=== PATIENT | male | born 1995 | race Caucasian/White ===

== ENCOUNTER 2019-03-26 19:44 | Inpatient (IN) | payer MEDICAID ==
[~2019-03-26] VITALS: Ht 182.9 cm; Wt 75.3 kg
[2019-03-26] MEDS ORDERED: RISP3 PO (21:54)
[2019-03-26] MEDS ORDERED: CETI10TA59 PO (21:54)
[2019-03-26] MEDS ORDERED: FLUT16H NASAL (21:54)
[2019-03-26] MEDS ORDERED: GABA-531 PO (21:54)
[2019-03-26] MEDS ORDERED: MINO50CA36 PO (21:54)
[2019-03-26] MEDS ORDERED: GUAN1TAB22 PO (21:54)
[2019-03-26 22:09] LABS: BASOPHILS % (AUTO) 0.4 % (0.0-2.0); EOSINOPHILS % (AUTO) 0.6 % (1.0-6.0); HEMATOCRIT 40.2 % (41-53); HEMOGLOBIN 13.8 g/dL (13.5-17.5); LYMPHOCYTES # (AUTO) 2.2 K/uL (1.0-4.8); LYMPHOCYTES % (AUTO) 24.8 % (22.0-44.0); MEAN CORPUSCULAR HEMOGLOBIN 29.8 pg (26.0-34.0); MEAN CORPUSCULAR HGB CONC 34.4 G/dL (31.0-37.0); MEAN CORPUSCULAR VOLUME 87 fL (80-100); MONOCYTES # (AUTO) 0.5 K/uL (0.1-1.0); NEUTROPHILS # (AUTO) 6.2 K/uL (1.8-7.7); NEUTROPHILS % (AUTO) 68.2 % (40.0-70.0); PLATELET COUNT (AUTO) 197 K/uL (150-450); RED BLOOD CELL COUNT(AUTO) 4.64 MIL/uL (4.50-5.90); RED CELL DISTRIBUTION WIDTH 13.3 % (11.5-14.5)
[2019-03-26 22:19] LABS: ANION GAP 16 mmol/L (8-16); CALCIUM, TOTAL 9.5 mg/dL (8.8-10.5); CARBON DIOXIDE 26 mmol/L (22-29); CHLORIDE 102 mmol/L (98-107); CREATININE 0.93 mg/dL (0.60-1.30); GLOMERULAR FILTR. RATE CALC > 60 mL/min (>60); GLUCOSE,RANDOM 98 mg/dL (70-110); POTASSIUM 4.3 mmol/L (3.5-5.1); SODIUM SERUM 144 mmol/L (136-145); UREA NITROGEN, BLOOD 18 mg/dL (7-18)
[2019-03-26 22:22] LABS: AMPHET/METH SCREEN,URINE NEGATIVE (NEGATIVE); BARBITURATE SCREEN, URINE NEGATIVE (NEGATIVE); BENZODIAZEPINES SCREEN,URINE NEGATIVE (NEGATIVE); CANNABINOID SCREEN,URINE NEGATIVE (NEGATIVE); COCAINE SCREEN,URINE NEGATIVE (NEGATIVE); METHADONE SCREEN, URINE NEGATIVE (NEGATIVE); OPIATE SCREEN,URINE NEGATIVE (NEGATIVE)
[2019-03-26 22:24] LABS: PHENCYCLIDINE SCREEN,URINE NEGATIVE (NEGATIVE)
[2019-03-26 22:25] LABS: ALANINE AMINOTRANSFERASE 20 U/L (12-78); ALBUMIN 4.3 g/dL (3.4-5.0); ALKALINE PHOSPHATASE 103 U/L (46-116); ASPARTATE AMINOTRANSFERASE 22 U/L (15-37); BILIRUBIN,TOTAL 0.4 mg/dL (0.1-1.0); TOTAL PROTEIN, SERUM 7.2 g/dL (6.4-8.2)
[2019-03-26] MEDS ORDERED: LORazepam 2 MG TABLET PO PRN (23:30)
[2019-03-26] MEDS ORDERED: ZOLPIDEM TARTRATE 10 MG TABLET PO PRN (23:30)
[2019-03-26] MEDS ORDERED: HALOPERIDOL 5 MG TABLET PO PRN (23:30)
[2019-03-27 04:01] VITALS: BP 128/78
[2019-03-27] MEDS ORDERED: DOCUSATE SODIUM 100 MG CAPSULE PO PRN (08:15)
[2019-03-27] MEDS ORDERED: PETROLATUM,WHITE 28 GM JELLY TP PRN (08:15)
[2019-03-27] MEDS ORDERED: MAGNESIUM HYDROXIDE SUSPENSION 30 ML UDCUP PO PRN (08:15)
[2019-03-27] MEDS ORDERED: CloNIDine HCL 0.1 MG TABLET PO PRN (08:15)
[2019-03-27] MEDS ORDERED: ALBUTEROL SULFATE HFA 90 MCG/PUFF 8 GM INHALER IH PRN (08:15)
[2019-03-27] MEDS ORDERED: GuaiFENesin/D-METHORPHAN [SUGAR-FREE] 200-20MG/10 ML SYRUP UDCUP PO PRN (08:15)
[2019-03-27] MEDS ORDERED: MAG HYDROX/AL HYDROX/SIMETH ES 30 ML SUSPENSION UDCUP PO PRN (08:15)
[2019-03-27] MEDS ORDERED: IBUPROFEN 400 MG TABLET PO PRN (08:15)
[2019-03-27] MEDS ORDERED: NICOTINE 14 MG/24 HOUR PATCH TD PRN (08:15)
[2019-03-27] MEDS ORDERED: ACETAMINOPHEN 325 MG TABLET PO PRN (08:15)
[2019-03-27] MEDS ORDERED: LOPERAMIDE HCL 2 MG CAPSULE PO PRN (08:15)
[2019-03-27] MEDS ORDERED: ONDANSETRON HCL 4 MG TABLET PO PRN (08:15)
[2019-03-27] MEDS: GABAPENTIN 300 MG CAPSULE PO SCH ×3 (09:26→17:23)
[2019-03-27 10:54] LABS: CHOL/HDL RATIO 2.8 (4.2-7.3); CHOLESTEROL 132 mg/dL (131-200); HDL CHOLESTEROL 48 mg/dL (40-60); LDL CHOL (CALC.) 77 mg/dL (0-130); TRIGLYCERIDES 36 mg/dL (15-150)
[2019-03-27 12:39] VITALS: BP 119/65
[2019-03-27] MEDS ORDERED: GuanFACINE HCL 1 MG TABLET PO SCH ×2 (13:45→21:00)
[2019-03-27 16:30] VITALS: BP 128/67
[2019-03-27] MEDS ORDERED: MINO100 PO (16:39)
[2019-03-27] MEDS ORDERED: GABAPENTIN 300 MG CAPSULE PO SCH (17:00)
[2019-03-27] MEDS ORDERED: RisperiDONE 3 MG TABLET PO SCH ×2 (21:00)
[2019-03-28 09:32] VITALS: BP 128/79
[2019-03-28] MEDS: GABAPENTIN 300 MG CAPSULE PO SCH ×2 (09:46→12:38)
== END 2019-03-28 14:15 | disposition home or self-care (01) | DRG 751 ==
LOC: EMS 19:48 → 3EI 03-27 02:18
PROVIDERS: ADMIT Psychiatry & Neurology Psychiatry; ATTEND Psychiatry & Neurology Psychiatry
DX: F33.2 Major depressive disorder, recurrent severe without psychotic features (principal); F79 Unspecified intellectual disabilities; D64.9 Anemia, unspecified; F41.9 Anxiety disorder, unspecified; F84.0 Autistic disorder; J30.9 Allergic rhinitis, unspecified; F63.81 Intermittent explosive disorder; Z79.899 Other long term (current) drug therapy
CPT/HCPCS: G0480

== ENCOUNTER 2022-09-11 20:21 | Inpatient (IN) | payer MEDICAID, OTHER ==
[~2022-09-11] VITALS: Ht 188 cm; Wt 63.6 kg
[~2022-09-11 20:21] MED LIST: GABA-1181 PO; GUAN1TAB22 PO; RISP3TAB35 PO
[2022-09-11 22:45] LABS: BASOPHILS % (AUTO) 0.4 % (0.0-2.0); EOSINOPHILS % (AUTO) 1.1 % (1.0-6.0); HEMATOCRIT 40.8 % (41-53); HEMOGLOBIN 13.6 g/dL (13.5-17.5); LYMPHOCYTES # (AUTO) 2.4 K/uL (1.0-4.8); LYMPHOCYTES % (AUTO) 33.4 % (22.0-44.0); MEAN CORPUSCULAR HEMOGLOBIN 29.1 pg (26.0-34.0); MEAN CORPUSCULAR HGB CONC 33.4 G/dL (31.0-37.0); MEAN CORPUSCULAR VOLUME 87 fL (80-100); MONOCYTES # (AUTO) 0.5 K/uL (0.1-1.0); MONOCYTES % (AUTO) 6.5 % (2.0-9.0); NEUTROPHILS # (AUTO) 4.1 K/uL (1.8-7.7); NEUTROPHILS % (AUTO) 58.6 % (40.0-70.0); PLATELET COUNT (AUTO) 183 K/uL (150-450); RED BLOOD CELL COUNT(AUTO) 4.67 MIL/uL (4.50-5.90); RED CELL DISTRIBUTION WIDTH 12.9 % (11.5-14.5)
[2022-09-11 22:53] LABS: ANION GAP 5 mmol/L (8-16); CARBON DIOXIDE 30 mmol/L (22-29); CHLORIDE 107 mmol/L (98-107); CREATININE 0.86 mg/dL (0.60-1.30); GLOMERULAR FILTR. RATE CALC > 60 mL/min (>60); GLUCOSE,RANDOM 88 mg/dL (70-110); POTASSIUM 4.2 mmol/L (3.5-5.1); SODIUM SERUM 142 mmol/L (136-145); UREA NITROGEN, BLOOD 18 mg/dL (7-18)
[2022-09-11 22:58] LABS: ALANINE AMINOTRANSFERASE 26 U/L (12-78); ALKALINE PHOSPHATASE 135 U/L (46-116); ASPARTATE AMINOTRANSFERASE 25 U/L (15-37); BILIRUBIN,TOTAL 0.3 mg/dL (0.1-1.0)
[2022-09-12] MEDS ORDERED: ZOLPIDEM TARTRATE 10 MG TABLET PO PRN
[2022-09-12 00:50] LABS: COVID AG,FIA SOURCE NASOPHARYNGEAL
[2022-09-12 04:42] VITALS: BP 126/84
[2022-09-12] MEDS ORDERED: INFLUENZA VIRUS VACCINE QVS 2022-23 (6MO+)/PF 60 MCG/0.5 ML SYRINGE IM. ONE (05:30)
[2022-09-12] MEDS ORDERED: ACETAMINOPHEN 325 MG TABLET PO PRN (06:45)
[2022-09-12] MEDS ORDERED: ALBUTEROL SULFATE HFA 90 MCG/PUFF 8 GM INHALER IH PRN (06:45)
[2022-09-12] MEDS ORDERED: IBUPROFEN 400 MG TABLET PO PRN (06:45)
[2022-09-12] MEDS ORDERED: MAG HYDROX/AL HYDROX/SIMETH ES 30 ML SUSPENSION UDCUP PO PRN (06:45)
[2022-09-12] MEDS ORDERED: MAGNESIUM HYDROXIDE SUSPENSION 30 ML UDCUP PO PRN (06:45)
[2022-09-12] MEDS ORDERED: LOPERAMIDE HCL 2 MG CAPSULE PO PRN (06:45)
[2022-09-12] MEDS ORDERED: NICOTINE 14 MG/24 HOUR PATCH TD PRN (06:45)
[2022-09-12] MEDS ORDERED: CloNIDine HCL 0.1 MG TABLET PO PRN (06:45)
[2022-09-12] MEDS ORDERED: PETROLATUM,WHITE 28 GM JELLY TP PRN (06:45)
[2022-09-12] MEDS ORDERED: ONDANSETRON HCL 4 MG TABLET PO PRN (06:45)
[2022-09-12] MEDS ORDERED: GuaiFENesin/D-METHORPHAN [SUGAR-FREE] 200-20MG/10 ML SYRUP UDCUP PO PRN (06:45)
[2022-09-12] MEDS ORDERED: DOCUSATE SODIUM 100 MG CAPSULE PO PRN (06:45)
[2022-09-12 08:30] VITALS: BP 119/68
[2022-09-12] MEDS: FAMOTIDINE 20 MG TABLET PO SCH (09:01)
[2022-09-12] MEDS ORDERED: BENZ0.5T49 PO (09:02)
[2022-09-12] MEDS ORDERED: GUAN2TAB PO (09:02)
[2022-09-12] MEDS ORDERED: GABA600T10 PO (09:02)
[2022-09-12] MEDS ORDERED: ARIP15TA27 PO (09:03)
[2022-09-12] MEDS: HALOPERIDOL 5 MG TABLET PO PRN (09:03)
[2022-09-12] MEDS: LORazepam 2 MG TABLET PO PRN ×2 (09:03→20:35)
[2022-09-12] MEDS ORDERED: SERT-439 PO (09:03)
[2022-09-12] MEDS: ARIPiprazole 15 MG TABLET PO SCH (09:57)
[2022-09-12] MEDS: GABAPENTIN 300 MG CAPSULE PO SCH ×3 (09:58→16:05)
[2022-09-12] MEDS: SERTRALINE HCL 50 MG TABLET PO SCH (09:58)
[2022-09-12] MEDS: BENZTROPINE MESYLATE 0.5 MG TABLET PO SCH ×2 (09:58→16:05)
[2022-09-12] MEDS: CETIRIZINE HCL 10 MG TABLET PO SCH (12:42)
[2022-09-12] MEDS: GuanFACINE HCL 1 MG TABLET PO SCH ×2 (12:42→16:05)
[2022-09-12] MEDS: MINOCYCLINE HCL 100 MG CAPSULE PO SCH (12:42)
[2022-09-12 20:26] VITALS: BP 101/62
[2022-09-12] MEDS: RisperiDONE 3 MG TABLET PO SCH (20:35)
[2022-09-13] MEDS: MINOCYCLINE HCL 100 MG CAPSULE PO SCH (06:32)
[2022-09-13 08:37] VITALS: BP 102/65
[2022-09-13] MEDS: SERTRALINE HCL 50 MG TABLET PO SCH (09:06)
[2022-09-13] MEDS: ARIPiprazole 15 MG TABLET PO SCH (09:06)
[2022-09-13] MEDS: FAMOTIDINE 20 MG TABLET PO SCH (09:06)
[2022-09-13] MEDS: CETIRIZINE HCL 10 MG TABLET PO SCH (09:06)
[2022-09-13] MEDS: BENZTROPINE MESYLATE 0.5 MG TABLET PO SCH ×2 (09:06→17:05)
[2022-09-13] MEDS: GABAPENTIN 300 MG CAPSULE PO SCH ×3 (09:07→16:55)
[2022-09-13] MEDS: GuanFACINE HCL 1 MG TABLET PO SCH ×2 (09:07→16:55)
[2022-09-13] MEDS: MULTIVITAMINS WITH MINERALS, THERAPEUTIC TABLET PO SCH (09:08)
[2022-09-13] MEDS: HALOPERIDOL 5 MG TABLET PO PRN (16:55)
[2022-09-13] MEDS: LORazepam 2 MG TABLET PO PRN (16:55)
[2022-09-13 20:26] VITALS: BP 114/61
[2022-09-13] MEDS: RisperiDONE 3 MG TABLET PO SCH (20:39)
[2022-09-14] MEDS: MINOCYCLINE HCL 100 MG CAPSULE PO SCH (06:23)
[2022-09-14 07:17] LABS: APPEARANCE,URINE CLEAR (CLEAR); BILIRUBIN,URINE NEGATIVE (NEGATIVE); GLUCOSE, URINE (UA) NEGATIVE (NEGATIVE); KETONES,URINE NEGATIVE (NEGATIVE); LEUKOCYTE ESTERASE ,URINE NEGATIVE (NEGATIVE); NITRATE,URINE NEGATIVE (NEGATIVE); OCCULT BLOOD,URINE NEGATIVE (NEGATIVE); PH,URINE 5.5 (5.0-8.0); PROTEIN,URINE NEGATIVE (NEGATIVE); SPECIFIC GRAVITIY, URINE 1.004 (1.003-1.030); UROBILINOGEN,URINE <=1.0 mg/dL (<=1.0)
[2022-09-14 07:23] LABS: AMPHET/METH SCREEN,URINE NEGATIVE (NEGATIVE); BARBITURATE SCREEN, URINE NEGATIVE (NEGATIVE); BENZODIAZEPINES SCREEN,URINE NEGATIVE (NEGATIVE); CANNABINOID SCREEN,URINE NEGATIVE (NEGATIVE); COCAINE SCREEN,URINE NEGATIVE (NEGATIVE); METHADONE SCREEN, URINE NEGATIVE (NEGATIVE); OPIATE SCREEN,URINE NEGATIVE (NEGATIVE); PHENCYCLIDINE SCREEN,URINE NEGATIVE (NEGATIVE)
[2022-09-14 08:21] VITALS: BP 120/61
[2022-09-14] MEDS: BENZTROPINE MESYLATE 0.5 MG TABLET PO SCH (08:58)
[2022-09-14] MEDS: GABAPENTIN 300 MG CAPSULE PO SCH (08:58)
[2022-09-14] MEDS: SERTRALINE HCL 50 MG TABLET PO SCH (08:58)
[2022-09-14] MEDS: GuanFACINE HCL 1 MG TABLET PO SCH (08:58)
[2022-09-14] MEDS: CETIRIZINE HCL 10 MG TABLET PO SCH (08:58)
[2022-09-14] MEDS: ARIPiprazole 15 MG TABLET PO SCH (08:58)
[2022-09-14] MEDS: FAMOTIDINE 20 MG TABLET PO SCH (08:58)
[2022-09-14] MEDS: MULTIVITAMINS WITH MINERALS, THERAPEUTIC TABLET PO SCH (08:58)
[2022-09-14] MEDS ORDERED: ARIP15TA27 PO (10:33)
[2022-09-14] MEDS ORDERED: CETI-450 PO (10:33)
[2022-09-14] MEDS ORDERED: SERT-439 PO (10:33)
[2022-09-14] MEDS ORDERED: GUAN1TAB2 PO (10:33)
[2022-09-14] MEDS ORDERED: MINO100 PO (10:33)
[2022-09-14] MEDS ORDERED: BENZ0.5T49 PO (10:33)
[2022-09-14] MEDS ORDERED: FAMO20 PO (10:33)
[2022-09-14] MEDS ORDERED: MULT-1239 PO (10:33)
[2022-09-14] MEDS ORDERED: GABA-1181 PO (10:33)
[2022-09-14] MEDS ORDERED: RISP3TAB63 PO (10:33)
== END 2022-09-14 14:17 | disposition home or self-care (01) | DRG 750 ==
LOC: EMS 20:22 → B3A 09-12 02:08
PROVIDERS: ADMIT Psychiatry & Neurology Psychiatry; ATTEND Psychiatry & Neurology Psychiatry
DX: F25.0 Schizoaffective disorder, bipolar type (principal); E44.0 Moderate protein-calorie malnutrition; R45.850 Homicidal ideations; F32.A Depression, unspecified; F41.9 Anxiety disorder, unspecified; F84.0 Autistic disorder; G47.00 Insomnia, unspecified; Z20.822 Contact with and (suspected) exposure to COVID-19; J30.9 Allergic rhinitis, unspecified; Z79.899 Other long term (current) drug therapy; Z68.1 Body mass index [BMI] 19.9 or less, adult
CPT/HCPCS: 80053; 80307; 81003; 85025; 99285; G0480

== ENCOUNTER 2024-01-14 10:59 | Inpatient (IN) | payer MEDICAID ==
[~2024-01-14] VITALS: Ht 182.9 cm; Wt 134.9 kg
[~2024-01-14 10:59] MED LIST changes: +ARIP15TA27 PO; +BENZ0.5T52 PO; +CETI-450 PO; +FAMO20 PO; +GUAN1TAB2 PO; -GUAN1TAB22 PO; +MINO100 PO; +MULT-1239 PO; -RISP3TAB35 PO; +RISP3TAB77 PO; +SERT-439 PO
[2024-01-14] MEDS ORDERED: ZOLPIDEM TARTRATE 10 MG TABLET PO PRN (12:45)
[2024-01-14] MEDS ORDERED: HALOPERIDOL 5 MG TABLET PO PRN (12:45)
[2024-01-14] MEDS ORDERED: LORazepam 2 MG TABLET PO PRN (12:45)
[2024-01-14 13:16] LABS: GLUCOMETER DEV NAME(LOC) POC.BV; POC SARS-COV2 AG, FIA NEGATIVE (NEGATIVE)
[2024-01-14 14:36] VITALS: BP 125/76; PULSE 78; RESP 18; TEMP 97.5; O2SAT 98
[2024-01-15 08:35] LABS: BASOPHILS % (AUTO) 0.2 % (0.0-2.0); EOSINOPHILS % (AUTO) 1.1 % (1.0-6.0); HEMATOCRIT 46.8 % (41-53); HEMOGLOBIN 15.7 g/dL (13.5-17.5); LYMPHOCYTES # (AUTO) 1.3 K/uL (1.0-4.8); LYMPHOCYTES % (AUTO) 20.5 % (22.0-44.0); MEAN CORPUSCULAR HEMOGLOBIN 29.2 pg (26.0-34.0); MEAN CORPUSCULAR HGB CONC 33.4 G/dL (31.0-37.0); MEAN CORPUSCULAR VOLUME 87 fL (80-100); MONOCYTES # (AUTO) 0.4 K/uL (0.1-1.0); MONOCYTES % (AUTO) 5.4 % (2.0-9.0); NEUTROPHILS # (AUTO) 4.7 K/uL (1.8-7.7); NEUTROPHILS % (AUTO) 72.8 % (40.0-70.0); PLATELET COUNT (AUTO) 205 K/uL (150-450); RED BLOOD CELL COUNT(AUTO) 5.36 MIL/uL (4.50-5.90); RED CELL DISTRIBUTION WIDTH 13.4 % (11.5-14.5); WHITE BLOOD COUNT (AUTO) 6.5 K/uL (4.5-11.0)
[2024-01-15 08:58] VITALS: BP 117/69; PULSE 84; RESP 17; TEMP 97.5; O2SAT 99
[2024-01-15 09:05] LABS: ALANINE AMINOTRANSFERASE 26 U/L (12-78); ALBUMIN 4.1 g/dL (3.4-5.0); ALKALINE PHOSPHATASE 100 U/L (46-116); ANION GAP 7 mmol/L (8-16); ASPARTATE AMINOTRANSFERASE 22 U/L (15-37); BILIRUBIN,TOTAL 0.3 mg/dL (0.1-1.0); CALCIUM, TOTAL 9.6 mg/dL (8.8-10.5); CARBON DIOXIDE 31 mmol/L (22-29); CHLORIDE 103 mmol/L (98-107); CHOLESTEROL 192 mg/dL (131-200); CREATININE 0.92 mg/dL (0.60-1.30); FREE T4 (FREE THYROXINE) 0.88 ng/dL (0.76-1.46); GLOMERULAR FILTR. RATE CALC > 60 mL/min (>60); GLUCOSE,RANDOM 100 mg/dL (70-110); HDL CHOLESTEROL 48 mg/dL (40-60); LDL CHOL (CALC.) 138 mg/dL (0-130); POTASSIUM 4.2 mmol/L (3.5-5.1); SODIUM SERUM 141 mmol/L (136-145); T4 (THYROXINE) 6.1 mcg/dL (4.7-13.3); THYROID STIMULATING HORMONE 2.25 uIU/mL (0.36-3.74); TOTAL PROTEIN, SERUM 7.9 g/dL (6.4-8.2); TRIGLYCERIDES 32 mg/dL (15-150); UREA NITROGEN, BLOOD 21 mg/dL (7-18)
[2024-01-15] MEDS ORDERED: LOPERAMIDE HCL 2 MG CAPSULE PO PRN (10:30)
[2024-01-15] MEDS ORDERED: MAGNESIUM HYDROXIDE SUSPENSION 30 ML UDCUP PO PRN (10:30)
[2024-01-15] MEDS ORDERED: PETROLATUM,WHITE 28 GM JELLY TP PRN (10:30)
[2024-01-15] MEDS ORDERED: ONDANSETRON HCL 4 MG TABLET PO PRN (10:30)
[2024-01-15] MEDS ORDERED: MAG HYDROX/ALUMINUM HYD/SIMETH ES 30 ML SUSPENSION UDCUP PO PRN (10:30)
[2024-01-15] MEDS ORDERED: ACETAMINOPHEN 325 MG TABLET PO PRN (10:30)
[2024-01-15] MEDS ORDERED: CloNIDine HCL 0.1 MG TABLET PO PRN (10:30)
[2024-01-15] MEDS ORDERED: BENZOCAINE/MENTHOL LOZENGE PO PRN (10:30)
[2024-01-15] MEDS ORDERED: DOCUSATE SODIUM 100 MG CAPSULE PO PRN (10:30)
[2024-01-15] MEDS ORDERED: IBUPROFEN 600 MG TABLET PO PRN (10:30)
[2024-01-15] MEDS ORDERED: BACITRACIN 28 GM OINTMENT TP PRN (10:30)
[2024-01-15] MEDS ORDERED: ALBUTEROL SULFATE HFA 90 MCG/PUFF 8 GM INHALER IH PRN (10:30)
[2024-01-15] MEDS ORDERED: OMEPRAZOLE 20 MG CAPSULE PO PRN (10:30)
[2024-01-15] MEDS: GABAPENTIN 300 MG CAPSULE PO SCH (13:21)
[2024-01-15] MEDS ORDERED: GABAPENTIN 300 MG CAPSULE PO SCH (17:00)
[2024-01-15] MEDS ORDERED: GuanFACINE HCL 1 MG TABLET PO SCH (17:00)
[2024-01-15 20:00] VITALS: BP 125/65; PULSE 62; RESP 17; TEMP 98.1; O2SAT 99
[2024-01-15] MEDS: RisperiDONE 3 MG TABLET PO SCH (21:20)
[2024-01-15] MEDS: GuanFACINE HCL 1 MG TABLET PO SCH (21:20)
[2024-01-15] MEDS: BENZTROPINE MESYLATE 0.5 MG TABLET PO SCH (21:21)
[2024-01-16 09:38] VITALS: BP 120/73; PULSE 93; RESP 17; TEMP 98.2; O2SAT 98
[2024-01-16] MEDS: SERTRALINE HCL 50 MG TABLET PO SCH (09:53)
[2024-01-16] MEDS: FAMOTIDINE 20 MG TABLET PO SCH (09:53)
[2024-01-16] MEDS: ARIPiprazole 15 MG TABLET PO SCH (09:53)
[2024-01-17 09:06] VITALS: BP 121/72; PULSE 84; RESP 17; TEMP 97.6; O2SAT 95
[2024-01-18 08:50] LABS: APPEARANCE,URINE CLEAR (CLEAR); BILIRUBIN,URINE NEGATIVE (NEGATIVE); COLOR,URINE LIGHT YELLOW (YELLOW); GLUCOSE, URINE (UA) NEGATIVE (NEGATIVE); KETONES,URINE NEGATIVE (NEGATIVE); LEUKOCYTE ESTERASE ,URINE NEGATIVE (NEGATIVE); NITRATE,URINE NEGATIVE (NEGATIVE); OCCULT BLOOD,URINE NEGATIVE (NEGATIVE); PROTEIN,URINE NEGATIVE (NEGATIVE); SPECIFIC GRAVITIY, URINE 1.014 (1.003-1.030); UROBILINOGEN,URINE <=1.0 mg/dL (<=1.0)
[2024-01-18 09:01] VITALS: BP 113/71; PULSE 73; RESP 17; TEMP 97.3; O2SAT 94
[2024-01-18 09:02] LABS: ALCOHOL, URINE DRUG SCREEN NEGATIVE (NEGATIVE); AMPHET/METH SCREEN,URINE NEGATIVE (NEGATIVE); BARBITURATE SCREEN, URINE NEGATIVE (NEGATIVE); BENZODIAZEPINES SCREEN,URINE NEGATIVE (NEGATIVE); CANNABINOID SCREEN,URINE NEGATIVE (NEGATIVE); COCAINE SCREEN,URINE NEGATIVE (NEGATIVE); METHADONE SCREEN, URINE NEGATIVE (NEGATIVE); OPIATE SCREEN,URINE NEGATIVE (NEGATIVE); PHENCYCLIDINE SCREEN,URINE NEGATIVE (NEGATIVE)
[2024-01-18] MEDS ORDERED: BENZ0.5T52 PO (11:37)
[2024-01-18] MEDS ORDERED: GUAN1TAB2 PO (11:37)
== END 2024-01-18 18:25 | disposition home or self-care (01) | DRG 750 ==
LOC: B2S 12:31 → UNDOADMIN 12:31 → B2S 12:36
PROVIDERS: ADMIT Psychiatry & Neurology Psychiatry; ATTEND Psychiatry & Neurology Psychiatry
PROC: GZHZZZZ Group Psychotherapy (ICD-10-PCS; principal; 2024-01-15)
PROC: GZ52ZZZ Individual Psychotherapy, Cognitive (ICD-10-PCS; 2024-01-15)
DX: F25.0 Schizoaffective disorder, bipolar type (principal); F79 Unspecified intellectual disabilities; E66.9 Obesity, unspecified; Z68.41 Body mass index [BMI] 40.0-44.9, adult; F84.0 Autistic disorder; F41.9 Anxiety disorder, unspecified; G47.00 Insomnia, unspecified; K59.00 Constipation, unspecified; Z20.822 Contact with and (suspected) exposure to COVID-19; F90.9 Attention-deficit hyperactivity disorder, unspecified type; Z79.899 Other long term (current) drug therapy
CPT/HCPCS: 80053; 80061; 80307; 81003; 84436; 84439; 84443; 85025; 86592